=== PATIENT | male | born 1950 | race Caucasian/White ===

== ENCOUNTER 2018-02-10 00:13 | Emergency (ER) | payer SELFPAY ==
[~2018-02-10] VITALS: Ht 177.8 cm; Wt 84.4 kg
--- NOTE | 2018-02-10 00:24 | ED.ADGEN ---
Past History Past Medical History: Anemia, COPD, Seizure, Other Adult General Chief Complaint Chief Complaint "Oh.. Ah.. ooooh... " HPI HPI Patient is a 60 year old male who presents with hx of mental status change. Pt. PD referral for bizarre behavior. Pt. banging on door 's of apt. complex, yelling and cursing. Patient combative at scene required 5mg of Versed for sedation by paramedics. Pt. arrives combative requiring restraints for pt. and staff protection. Pt. completely non-cooperative. Some possible hx of ETOH with draw Seizure- per bystanders. [facility] - but [facility] under this admission name. Pt. has obvious bites to his tongue. Pt. moving all ext. fighting restraints and appears to have hallucinations. Does appear to have seizure activity interment. Review of Systems Review of Systems Unable obtain due to pt. mental state Family History Family History Not currently available Current Medications Current Medications Current Medications Medications (Trade) Dose Ordered Sig/Nain Start Time Stop Time Status Last Admin Dose Admin Albuterol/ Ipratropium (Duoneb) 3 ml RTQID 02/10/18 08:00 02/11/18 07:59 Ceftriaxone Sodium 2 gm/ Sodium Chloride 100 ml @ 200 mls/hr 1X ONCE 02/10/18 02:15 02/10/18 02:44 DC 02/10/18 02:24 200 MLS/HR Ceftriaxone Sodium (Rocephin) 2 gm STK-MED ONCE 02/10/18 02:15 02/10/18 02:17 DC Diphenhydramine HCl (Benadryl) 50 mg 1X ONCE 02/10/18 01:00 02/10/18 01:01 DC 02/10/18 02:06 50 MG Folic Acid (FOLIC ACID SYRINGE for ER) 5 mg STK-MED ONCE 02/10/18 00:40 02/10/18 00:41 DC Lactated Ringer's 1,000 ml @ 200 mls/hr Q5H 02/10/18 02:00 02/10/18 02:28 200 MLS/HR Lorazepam (Ativan) 2 mg Q1HR 02/10/18 04:00 02/10/18 05:01 2 MG Midazolam HCl (Versed) 10 mg 1X ONCE 02/10/18 04:15 02/10/18 04:16 DC 02/10/18 02:54 10 MG Multivitamins/ Minerals (Infuvite Adult) 10 ml STK-MED ONCE 02/10/18 00:40 02/10/18 00:41 DC Multivitamins/ Minerals 10 ml/ Folic Acid 1 mg/ Thiamine HCl 100 mg/Lactated Ringer's 1,011.2 ml @ 125 mls/ hr DAILY 02/10/18 09:00 Olanzapine (ZyPREXA IM) 10 mg 1X ONCE 02/10/18 01:00 02/10/18 01:01 DC 02/10/18 02:03 10 MG Ondansetron HCl (Zofran) 4 mg PRN Q4HRS PRN 02/10/18 02:00 02/11/18 01:59 Propofol (Diprivan) 200,000 mcg 1X ONCE 02/10/18 05:30 02/10/18 05:31 DC Sodium Bicarbonate (Sodium Bicarb Adult 8.4% Syr) 50 meq 1X ONCE 02/10/18 02:15 02/10/18 02:16 DC 02/10/18 02:21 50 MEQ Sodium Chloride 100 ml @ As Directed STK-MED ONCE 02/10/18 02:16 02/10/18 02:17 DC Succinylcholine Chloride (Anectine) 100 mg 1X ONCE 02/10/18 03:05 02/10/18 04:35 DC 02/10/18 04:24 100 MG Thiamine HCl (Thiamine Vial) 200 mg STK-MED ONCE 02/10/18 00:40 02/10/18 00:41 DC Home meds not known Allergies Allergies Allergies Coded Allergies Type Severity Reaction Last Updated Verified No Known Allergies Allergy Unknown 02/10/18 Yes Physical Exam Physical Exam Constitutional: in acute emotional distress, appears to be having hallucinations , very agitated in appearance. [] HENT: Normocephalic, bite bhakta to tongue, , bilateral external ears normal, oropharynx moist, no oral exudates, nose normal. []Very poor dentition. Eyes: PERRLA, EOMI, conjunctiva normal, no discharge. [] Neck: Normal range of motion, no tenderness, supple, no stridor. [] Cardiovascular:Tachycardia Heart rate regular rhythm, no murmur [] Lungs & Thorax: Bilateral breath sounds equal apex with rhonchi and wheezing on auscultation []Increase rhonchi on Rt. upper lung nettles. Occasional bouts of coughing spasms. Abdomen: Bowel sounds normal, soft, no tenderness, no masses, no pulsatile masses. [] Skin: Warm, dry, no erythema, no rash. [] Back: No tenderness, no CVA tenderness. [] Extremities: No tenderness, no cyanosis, no clubbing, some area of contusions to knees, no edema. [] Neurologic:Non responsive to verbal commands, moving all ext. fighting restraints., Withdraws to noxious stimuli and cross reacts. Occasional episodes of tonic clonic movements which appear to be seizure activity. Psychologic: Affect very agitated. Appears to be having hallucinations. Current Patient Data Vital Signs Vital Signs Date Time Temp Pulse Resp B/P (MAP) Pulse Ox O2 Delivery O2 Flow Rate FiO2 02/10/18 05:00 56 12 128/61 (83) 100 Ventilator 02/10/18 03:17 15.0 Lab Results Laboratory Tests Test 02/10/18 00:20 02/10/18 00:45 02/10/18 00:54 02/10/18 01:00 White Blood Count 10.8 x10^3/uL (4.0-11.0) Red Blood Count 3.68 x10^6/uL (4.30-5.70) L Hemoglobin 9.3 g/dL (13.0-17.5) L Hematocrit 28.3 % (39.0-53.0) L Mean Corpuscular Volume 77 fL (79-100) L Mean Corpuscular Hemoglobin 25 pg (25-35) Mean Corpuscular Hemoglobin Concent 33 g/dL (31-37) Red Cell Distribution Width 18.9 % (11.5-14.5) H Platelet Count 211 x10^3/uL (140-400) Neutrophils (%) (Auto) 53 % (31-73) Lymphocytes (%) (Auto) 24 % (24-48) Monocytes (%) (Auto) 16 % (0-9) H Eosinophils (%) (Auto) 4 % (0-3) H Basophils (%) (Auto) 4 % (0-3) H Neutrophils # (Auto) 5.7 x10^3uL (1.8-7.7) Lymphocytes # (Auto) 2.6 x10^3/uL (1.0-4.8) Monocytes # (Auto) 1.7 x10^3/uL (0.0-1.1) H Eosinophils # (Auto) 0.4 x10^3/uL (0.0-0.7) Basophils # (Auto) 0.4 x10^3/uL (0.0-0.2) H Erythrocyte Sedimentation Rate 20 (0-15) H Prothrombin Time 10.3 SEC (9.4-11.4) Prothrombin Time INR 1.0 (0.9-1.1) PTT 28 SEC (23-33) D-Dimer (Holly) 0.76 mg/L (0.00-0.50) H Sodium Level 141 mmol/L (136-145) Potassium Level 3.7 mmol/L (3.5-5.1) Chloride Level 103 mmol/L (98-107) Carbon Dioxide Level 27 mmol/L (21-32) Anion Gap 11 (6-14) Blood Urea Nitrogen 18 mg/dL (8-26) Creatinine 1.0 mg/dL (0.7-1.3) Estimated GFR (Cockcroft-Gault) 74.1 Glucose Level 90 mg/dL (70-99) Lactic Acid Level 2.7 mmol/L (0.4-2.0) H Calcium Level 8.9 mg/dL (8.5-10.1) Magnesium Level 2.2 mg/dL (1.8-2.4) Total Bilirubin 0.3 mg/dL (0.2-1.0) Direct Bilirubin 0.1 mg/dL (0.0-0.2) Aspartate Amino Transferase (AST) 65 U/L (15-37) H Alanine Aminotransferase (ALT) 31 U/L (16-63) Alkaline Phosphatase 75 U/L (46-116) Ammonia 17 mcmol/L (11-34) Creatine Kinase 2197 U/L (39-308) H Troponin I Quantitative < 0.017 ng/mL (0-0.055) C-Reactive Protein 14.1 mg/L (0-3.3) H NU-Rtn-G-Type Natriuretic Peptide 429 pg/mL (0-124) H Total Protein 7.2 g/dL (6.4-8.2) Albumin 3.5 g/dL (3.4-5.0) Lipase 87 U/L (73-393) Ethyl Alcohol Level < 10 mg/dL (0-10) Blood pH 7.38 (7.35-7.46) Blood Gas PCO2 46 mmHg (35-46) Blood Gas PO2 48 mmHg (80-100) *L Blood Gas HCO3 28 mmol/L (21-28) Arterial Bld O2 Saturation (Calc) 82 % (92-99) L FiO2 21 % Glucose (Fingerstick) 86 mg/dL (70-99) Urine Collection Type Unknown Urine Color Yellow Urine Clarity Clear Urine pH 5.5 Urine Specific [place] 1.025 Urine Protein 30 mg/dl (NEG-TRACE) Urine Glucose (UA) Neg mg/dL (NEG) Urine Ketones (Stick) 15 mg/dL (NEG) Urine Blood Neg (NEG) Urine Nitrite Neg (NEG) Urine Bilirubin Neg (NEG) Urine Urobilinogen Dipstick 0.2 mg/dL (0.2 mg/dL) Urine Leukocyte Esterase Neg (NEG) Urine RBC 0 /HPF (0-2) Urine WBC 1-4 /HPF (0-4) Urine Squamous Epithelial Cells Few /LPF Urine Bacteria 0 /HPF (0-FEW) Urine Opiates Screen Neg (NEG) Urine Methadone Screen Neg (NEG) Urine Barbiturates Neg (NEG) Urine Phencyclidine Screen Neg (NEG) Urine Amphetamine/Methamphetamine Pos (NEG) Urine Benzodiazepines Screen Pos (NEG) Urine Cocaine Screen Neg (NEG) Urine Cannabinoids Screen Neg (NEG) Urine Ethyl Alcohol Neg (NEG) EKG EKG My interpretation of EKG shows a sinus rhythm at 75 bpm. There is some nonspecific anterior lateral changes. But no findings acute STEMI with contralateral changes.[] Radiology/Procedures Radiology/Procedures I interpretation chest x-ray shows ET above the [place]. No obvious pneumothorax. Does have some increased cephalization and findings consistent with possible aspiration pneumonitis. Patchy infiltrates. There is no free air in the diaphragm. There is degenerative joint changes. There are findings of old rib fractures. OG appears to be in stomach. My interpretation CT of head and cervical shows no obvious fracture, edema, bleed, mass. Does have findings of atrophy and white matter disease changes. My interpretation of CT of neck shows degenerative joint changes but no obvious fracture dislocation. ECT tube and trachea and below is above [place]ieta.[] Course & Med Decision Making Course & Med Decision Making Pertinent Labs and Imaging studies reviewed. (See chart for details). Patient remained in 4 x point restraints due to periodic episodes of fighting. Patient eventually required intubation in order to complete his evaluation. Procedure note- intubation for further evaluation-and protection of airway- patient received Propofol, Versed, and Succinylcholine and intubated with 7.5 tube. OG was placed. X-ray post intubation showed adequate placement of OG. He was CO2 change and rise since oxygenation. Vent management - AC rate of 15, PEEP 6, Oxygen titrated to sats above 100. Eat T-tube was advanced 1 cm to 24 cm at teeth. Critical Care -90 min - not counting procedures- Interpretation and bed side management. Discussed presentation, testing and tx. plan with Dr. Lopez- he will accept pt in transfer to [facility]. Final Impression Final Impression 1. Mental status change[] 2. Respiratory Failure Hypoxia- Suspect Aspiration 3. Seizure- Suspect ETOH withdrawal and methamphetamine abuse 4. Elevated CK 2,197 5. Elevated Lac. Acid 2.7 6. Elevated D-dimer 7. Anemia 9.3 Hgb 8. Elevated ESR 20 9. Elevated D-dimer 0.76 Dragon Disclaimer Dragon Disclaimer This electronic medical record was generated, in whole or in part, using a voice recognition dictation system. REJI DOMÍNGUEZ MD Feb 10, 2018 00:24
[2018-02-10] MEDS ORDERED: MVI, ADULT NO.4 WITH VIT K 10 ML, FOLIC ACID SYRINGE for ER 1 MG, THIAMINE INJ 100 MG i... IV ONE ×4 (00:30)
[2018-02-10] MEDS ORDERED: FOLIC ACID 5 MG/ML SYRINGE for ER IV ONE (00:40)
[2018-02-10] MEDS ORDERED: THIAMINE 200 MG/2 ML VIAL. IV ONE (00:40)
[2018-02-10] MEDS ORDERED: MVI, ADULT NO.4 WITH VIT K 10 ML VIAL IV ONE (00:40)
--- NOTE | 2018-02-10 00:40 | EKG ---
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
[2018-02-10 00:42] LABS: BASO # 0.4 x10^3/uL (0.0-0.2); BASO % 4 % (0-3); EOS # 0.4 x10^3/uL (0.0-0.7); EOS % 4 % (0-3); HEMATOCRIT 28.3 % (39.0-53.0); HEMOGLOBIN 9.3 g/dL (13.0-17.5); LYMPH # 2.6 x10^3/uL (1.0-4.8); LYMPH % 24 % (24-48); MEAN CORPUSCULAR HEMOGLOBIN 25 pg (25-35); MEAN CORPUSCULAR HGB CONC 33 g/dL (31-37); MEAN CORPUSCULAR VOLUME 77 fL (79-100); MONO # 1.7 x10^3/uL (0.0-1.1); MONO % 16 % (0-9); NEUT # 5.7 x10^3uL (1.8-7.7); NEUT % 53 % (31-73); PLATELET COUNT 211 x10^3/uL (140-400); RED BLOOD COUNT 3.68 x10^6/uL (4.30-5.70); RED CELL DISTRIBUTION WIDTH 18.9 % (11.5-14.5); WHITE BLOOD COUNT 10.8 x10^3/uL (4.0-11.0)
[2018-02-10] MEDS ORDERED: IV RINGERS SOLUTION,LACTATED 1,000 ML IV SCH ×2 (01:00→02:00)
[2018-02-10] MEDS ORDERED: diphenhydrAMINE 50 MG/ML VIAL IV ONE (01:00)
[2018-02-10] MEDS ORDERED: OLANZapine IM 10 MG VIAL. IM ONE (01:00)
[2018-02-10] MEDS ORDERED: LORazepam 2 MG/ML VIAL IV ONE (01:00)
[2018-02-10 01:18] LABS: ALBUMIN 3.5 g/dL (3.4-5.0); C REACTIVE PROTEIN 14.1 mg/L (0-3.3); CALCIUM 8.9 mg/dL (8.5-10.1); DIRECT BILIRUBIN 0.1 mg/dL (0.0-0.2); GFR 74.1; MAGNESIUM 2.2 mg/dL (1.8-2.4); POTASSIUM 3.7 mmol/L (3.5-5.1); TOTAL BILIRUBIN 0.3 mg/dL (0.2-1.0); TOTAL PROTEIN 7.2 g/dL (6.4-8.2)
[2018-02-10 01:46] LABS: SEDIMENTATION RATE 20 (0-15)
[2018-02-10] MEDS ORDERED: LORazepam 2 MG/ML VIAL IV PRN (02:00)
[2018-02-10] MEDS ORDERED: ONDANSETRON PF 4 MG/2 ML VIAL. IV PRN (02:00)
[2018-02-10] MEDS ORDERED: IV RINGERS SOLUTION,LACTATED 1,000 ML IV ONE (02:15)
[2018-02-10] MEDS ORDERED: SODIUM BICARB ADULT 8.4% 50 MEQ/50 ML DISP.SYRIN. IV ONE (02:15)
[2018-02-10] MEDS ORDERED: IV NORMAL SALINE 100ML 100 ML ONE (02:16)
[2018-02-10 02:20] LABS: BACTERIA,URINE 0 /HPF (0-FEW); BILIRUBIN,URINE NEG (NEG); CLARITY,URINE CLEAR; COLOR,URINE YELLOW; GLUCOSE,URINE NEG (NEG); NITRITE,URINE NEG (NEG); RBC,URINE 0 /HPF (0-2); SQUAMOUS EPITHELIAL CELL,UR FEW /LPF; UROBILINOGEN,URINE 0.2 mg/dL (0.2 mg/dL)
[2018-02-10 02:24] LABS: BARBITURATES NEG (NEG); BENZODIAZEPINES POS (NEG); CANNABINOIDS NEG (NEG); COCAINE NEG (NEG); METHADONE NEG (NEG); OPIATES NEG (NEG); PHENCYCLIDINE NEG (NEG)
[2018-02-10 02:28] LABS: AMPHETAMINE/METHAMPHETAMINE POS (NEG)
[2018-02-10] MEDS ORDERED: MIDAZOLAM HCL PF 5 MG/5 ML VIAL. ONE (02:31)
[2018-02-10] MEDS ORDERED: SUCCINYLCHOLINE 200 MG/10 ML VIAL. ONE (02:46)
[2018-02-10] MEDS ORDERED: PROPOFOL 100 ML IV ONE (02:46)
[2018-02-10] MEDS ORDERED: PROPOFOL 20 ML IV ONE ×2 (02:46→05:30)
[2018-02-10] MEDS ORDERED: SUCCINYLCHOLINE 200 MG/10 ML VIAL. IV ONE ×2 (02:50→03:05)
[2018-02-10] MEDS ORDERED: MIDAZOLAM HCL PF 5 MG/5 ML VIAL. IV ONE ×3 (03:00→07:00)
--- NOTE | 2018-02-10 04:22 | RAD ---
Examination: CT HEAD AND CERVICAL SPINE WO History: Mental status changes, confusion, falls, head and neck pain Comparison/Correlation: None Findings: Axial images of the head and cervical spine were obtained without contrast. Sagittal and coronal reformatted images the cervical spine were provided. Mild atrophy is present. No intracranial hemorrhage, shift, or mass effect. Cavernous carotid calcifications are present. Globes and optic nerves are unremarkable. Partial opacification of paranasal sinuses. Tubing is noted within the trachea and additional tube is noted along the course of the esophagus. The entire extent is not included for purposes of this exam. Atlantoaxial joint degenerative remodeling is present. Retrolisthesis of C3 versus C4 is present and less than grade 1 extent. Degenerative spurring along the posterior margin of C3-4 is present with no significant bony encroachment. Bony encroachment upon the right C4-5 neural foramen is notable. Mild C5-6 neural foraminal narrowing of the right is noted. Vertebral body heights are adequate. No displaced fracture or bone destruction. Vertebral soft tissues are unremarkable. Small pleural effusions are present. Impression: Degenerative changes of the cervical spine. No fracture. No intracranial hemorrhage. Small pleural effusions. Electronically signed by: Gary Maurice MD (02/10/2018 4:18 AM) [facility]
[2018-02-10] MEDS: LORazepam 2 MG/ML VIAL IV SCH ×3 (05:01→06:28)
[2018-02-10] MEDS ORDERED: PROPOFOL 10,000 MCG/ML (20ML) VIAL IV ONE (05:30)
[2018-02-10 06:30] VITALS: BP 122/58
[2018-02-10] MEDS ORDERED: IPRATRPIUM/ALBUTEROL 0.5/2.5MG 3 ML NEBU. NEB SCH (08:00)
--- NOTE | 2018-02-10 08:26 | RAD ---
PORTABLE CHEST 1V Clinical indications: Post-intubation COMPARISON: None available. Findings: ET tube is in place and the tip is located 4 cm above the level of an[place]. NG tube is in place and the tip is seen within the proximal body of the stomach. No acute lung infiltrate or pleural effusion or pulmonary edema or lung mass or pneumothorax is seen. The heart size, pulmonary vasculature, mediastinum and both dennise are unremarkable given AP magnification. Old healed bilateral rib cage fractures are evident. Impression: No acute radiographic abnormality is seen. Electronically signed by: Nael Booth MD (02/10/2018 8:22 AM) [facility]
[2018-02-10] MEDS ORDERED: LORazepam 2 MG/ML VIAL IV SCH (09:00)
[2018-02-10] MEDS ORDERED: MVI, ADULT NO.4 WITH VIT K 10 ML, FOLIC ACID SYRINGE for ER 1 MG, THIAMINE INJ 100 MG i... IV SCH ×4 (09:00)
[2018-02-12 07:52] LABS: BGAS PH 7.39 (7.35-7.46)
== END 2018-02-10 06:31 | disposition short-term general hospital (02) ==
LOC: EDBD 00:13 → ER 00:13
DX: R41.82 Altered mental status, unspecified (principal); J96.91 Respiratory failure, unspecified with hypoxia; R70.0 Elevated erythrocyte sedimentation rate; R74.8 Abnormal levels of other serum enzymes; R74.0 Nonspecific elevation of levels of transaminase and lactic acid dehydrogenase [LDH]; D64.9 Anemia, unspecified; R56.9 Unspecified convulsions; R79.1 Abnormal coagulation profile; J44.9 Chronic obstructive pulmonary disease, unspecified; Z86.2 Personal history of diseases of the blood and blood-forming organs and certain disorders involving the immune mechanism
CPT/HCPCS: 36415; 43752; 51702; 70450; 71045; 72125; 80048; 80076; 80307; 81001; 82140; 82550; 82803; 82947; 83605; 83690; 83735; 83874; 83880; 84443; 84484; 85025; 85379; 85610; 85651; 85730; 86140; 87040; 93005; 96365; 96367; 96372; 96375; 96376; 99291; 99292; G0480; J0330; J0696; J1200; J2060; J2250; J2704; J3490; J7120